=== PATIENT | male | born 1965 | race Native Hawaiian/Other Pacific Islander ===

== ENCOUNTER 2022-05-13 16:21 | Outpatient (CLI) | payer OTHER | END 2022-05-13 21:06 | disposition home or self-care (01) | LOC: RAD 16:21 | PROVIDERS: ATTEND Internal Medicine | DX: Z02.71 Encounter for disability determination (principal); M25.562 Pain in left knee; M25.561 Pain in right knee; M25.551 Pain in right hip; M54.50 Low back pain, unspecified; E78.00 Pure hypercholesterolemia, unspecified; I27.20 Pulmonary hypertension, unspecified; G50.0 Trigeminal neuralgia ==

== ENCOUNTER 2022-10-13 09:41 | Outpatient (CLI) | payer OTHER ==
[2022-10-13 10:05] LABS: PLATELET COUNT 257 K/uL (142-355)
[2022-10-13 10:21] LABS: POTASSIUM 4.2 mmol/L (3.6-5.2)
== END 2022-10-13 19:24 | disposition home or self-care (01) ==
LOC: LABW 09:41
PROVIDERS: ATTEND Nurse Practitioner
DX: Z01.818 Encounter for other preprocedural examination (principal)
CPT/HCPCS: 36415; 80053; 85027